=== PATIENT | female | born 1985 | race African-American/Black ===

== ENCOUNTER 2016-08-29 20:04 | Emergency (ER) | payer MEDICAID | END 2016-08-29 21:45 | disposition home or self-care (01) | LOC: D.ER 20:04 | DX: S10.93XA Contusion of unspecified part of neck, initial encounter (principal); S40.022A Contusion of left upper arm, initial encounter; S50.12XA Contusion of left forearm, initial encounter; Y04.2XXA Assault by strike against or bumped into by another person, initial encounter; Y93.89 Activity, other specified; Y92.89 Other specified places as the place of occurrence of the external cause; F17.200 Nicotine dependence, unspecified, uncomplicated ==

== ENCOUNTER 2017-02-26 22:29 | Emergency (ER) | payer MEDICAID | END 2017-02-27 00:23 | disposition home or self-care (01) | LOC: D.ER 22:29 | DX: R07.9 Chest pain, unspecified (principal); R11.10 Vomiting, unspecified; F17.200 Nicotine dependence, unspecified, uncomplicated ==

== ENCOUNTER 2017-06-29 08:04 | Emergency (ER) | payer MEDICAID | END 2017-06-29 09:04 | disposition home or self-care (01) | LOC: D.ER 08:04 | DX: N61.1 Abscess of the breast and nipple (principal) ==

== ENCOUNTER 2017-09-30 09:28 | Emergency (ER) | payer MEDICAID | END 2017-09-30 09:39 | disposition left against medical advice (07) | LOC: D.ER 09:28 | DX: Z02.9 Encounter for administrative examinations, unspecified (principal) ==

== ENCOUNTER 2018-02-01 08:30 | Emergency (ER) | payer OTHER ==
[~2018-02-01] VITALS: Ht 177.8 cm; Wt 127.3 kg
[2018-02-01 08:32] VITALS: Ht 177.8 cm; Wt 127.3 kg
[2018-02-01] MEDS ORDERED: KEFLEX500 MG PO (09:20)
[2018-02-01] MEDS ORDERED: NORCO 7.5/325 T1 TA1 PO (09:20)
[2018-02-01] MEDS ORDERED: PROVENTIL HFA6.7 GM INH (09:20)
[2018-02-01 10:05] VITALS: BP 107/78
== END 2018-02-01 10:06 | disposition home or self-care (01) ==
LOC: D.ER 08:30
DX: J40 Bronchitis, not specified as acute or chronic (principal); R09.89 Other specified symptoms and signs involving the circulatory and respiratory systems; F17.200 Nicotine dependence, unspecified, uncomplicated

== ENCOUNTER 2019-02-16 10:22 | Emergency (ER) | payer OTHER ==
[~2019-02-16] VITALS: Ht 177.8 cm; Wt 127.3 kg
[~2019-02-16 10:22] MED LIST: KEFLEX500 MG PO; NORCO 7.5/325 T1 TA1 PO; PROVENTIL HFA6.7 GM INH
[2019-02-16 10:31] VITALS: BP 107/63; Ht 177.8 cm; Wt 127.3 kg
[2019-02-16] MEDS ORDERED: TORADOL10 MG PO (13:05)
== END 2019-02-16 13:22 | disposition home or self-care (01) ==
LOC: D.ER 10:22
DX: M25.562 Pain in left knee (principal); M70.62 Trochanteric bursitis, left hip; Y93.89 Activity, other specified

== ENCOUNTER 2019-04-19 00:34 | Emergency (ER) | payer OTHER ==
[~2019-04-19] VITALS: Ht 177.8 cm; Wt 127.3 kg
[~2019-04-19 00:34] MED LIST changes: +TORADOL10 MG PO
[2019-04-19 00:48] VITALS: Ht 177.8 cm; Wt 127.3 kg
[2019-04-19 03:40] VITALS: BP 163/77
== END 2019-04-19 03:41 | disposition home or self-care (01) ==
LOC: D.ER 00:34
DX: H61.21 Impacted cerumen, right ear (principal); T16.1XXA Foreign body in right ear, initial encounter; X58.XXXA Exposure to other specified factors, initial encounter; F17.210 Nicotine dependence, cigarettes, uncomplicated